=== PATIENT | female | born 1990 | race Caucasian/White ===

== ENCOUNTER → 2016-10-22 | Outpatient (CLI) | payer BC ==
[~2016-10-22] MED LIST: CAMBIA50 MG PO; LEXAPRO PO
--- NOTE | ~2016-10-22 | US5 ---
[facility] A Service [facility] RADIOLOGY TEXT RESULTS PATIENT: ROHITH TRONCOSO LOCATION: [facility] : 89 UNIT #: [id number] AGE: [address]: VASILE MONTOYA APRN SEX: F ORDER DR: [id number] [address] [address] [id number] O MR#: [id number] Acc #: [id number] NAME: ROHITH TRONCOSO : 1990 SEX: F STUDY DATE/TIME: 10/22/2016 9:18 UNIT: [facility] ROOM: STUDY DESCRIPTION: US Abdominal Complete Attending Physician: Vasile Montoya Aprn Referring Physician: Vasile Montoya Aprn Ordering Physician: Vasile Montoya Aprn Primary Care Physician: Vasile Montoya Aprn MEDICAL IMAGING REPORT This report is preliminary unless electronic signature is present. EXAM Right upper quadrant ultrasound. DATE OF EXAM 10/22/2016 INDICATIONS 26-year-old female with right upper quadrant pain, nausea, vomiting and diarrhea for a week. TECHNIQUE Sonographic imaging of the right upper quadrant was performed. COMPARISON No comparisons. FINDINGS The pancreas was not well visualized or assessed. The liver demonstrates long axis length of 13.8 cm. No focal liver mass, ascites or intrahepatic ductal dilatation. The gallbladder is sonographically within normal limits. No sonographic Kerr's sign was described by the technologist. Right kidney nonobstructed measuring about 10.7 cm long axis. Extrahepatic common bile duct suboptimally visualized, but measures about 2-3 mm maximum diameter. IMPRESSION Negative right upper quadrant ultrasound. Pancreas not visualized or assessed. Dictated by... Devan Boston M.D. [facility] A Service [facility] RADIOLOGY TEXT RESULTS PATIENT: ROHITH TRONCOSO LOCATION: [facility] : 89 UNIT #: [id number] AGE: [address]: VASILE MONTOYA APRN SEX: F ORDER DR: THIS IS AN ELECTRONICALLY VERIFIED REPORT Devan Boston M.D. at 10/22/2016 4:52 PM Chacha TD: 10/22/2016 15:56 JOB #: [id number] MEDICAL IMAGING REPORT
== END | disposition home or self-care (01) ==
LOC: SGUS 07:54
DX: R10.11 Right upper quadrant pain (principal)
CPT/HCPCS: 76700

== ENCOUNTER 2017-01-14 14:25 | Emergency (ER) | payer BC ==
[2017-01-14] MEDS ORDERED: LEXAPRO PO (14:37)
[2017-01-14] MEDS ORDERED: CAMBIA50 MG PO (14:37)
== END 2017-01-14 16:14 | disposition home or self-care (01) ==
LOC: SED 14:25
DX: G44.209 Tension-type headache, unspecified, not intractable (principal); F17.200 Nicotine dependence, unspecified, uncomplicated; Z88.0 Allergy status to penicillin; Z88.1 Allergy status to other antibiotic agents; Z79.899 Other long term (current) drug therapy
CPT/HCPCS: 96372; 99283; J1885

== ENCOUNTER → 2017-01-27 | Outpatient (CLI) | payer BC ==
--- NOTE | ~2017-01-27 | MR18 ---
[facility] A Service of [facility] RADIOLOGY TEXT RESULTS PATIENT: ROHITH TRONCOSO LOCATION: [facility] : 89 UNIT #: [id number] AGE: [address]: VASILE OLIVER APRN SEX: F ORDER DR: [id number] [place] [id number] O MR#: [id number] Acc #: [id number] NAME: ROHITH TRONCOSO : 1990 SEX: F STUDY DATE/TIME: 01/27/2017 11:41 UNIT: [facility] ROOM: STUDY DESCRIPTION: MR Brain Wo Contrast Attending Physician: Vasile Oliver Aprn Referring Physician: Vasile Oliver Aprn Ordering Physician: Vasile Oliver Aprn Primary Care Physician: Vasile Oliver Aprn MRI CENTER REPORT This report is preliminary unless electronic signature is present. EXAM Brain MRI without contrast, 01/27/2017 PROCEDURE Routine unenhanced brain MRI. COMPARISON None HISTORY 4 year history of migraine type headaches, now increasing in frequency, severity and duration over the past 6 months. FINDINGS The brain is structurally normal. Bone marrow signal is normal. There is no hydrocephalus or extraaxial fluid collection. There is no evidence of acute or chronic intracranial hemorrhage and brain parenchymal signal is normal. Normal flow voids are seen in cerebral vessels. Bone marrow signal is normal. There is a right maxillary sinus air fluid level in addition to mucosal thickening. The findings suggest acute right maxillary sinusitis. IMPRESSION 1. The brain itself is normal. 2. Right maxillary sinus mucosal thickening and right maxillary sinus air fluid level suggesting acute right maxillary sinusitis. Dictated by... [facility] A Service of [facility] RADIOLOGY TEXT RESULTS PATIENT: ROHITH TRONCOSO LOCATION: [facility] : 89 UNIT #: [id number] AGE: [address]: VASILE OLIVER APRN SEX: F ORDER DR: Coleman De Souza M.D. THIS IS AN ELECTRONICALLY VERIFIED REPORT Coleman De Souza M.D. at 01/28/2017 3:57 PM LINDY/jenny TD: 01/28/2017 13:20 JOB #: [id number] MRI CENTER REPORT Page 1 of 1
== END | disposition home or self-care (01) ==
LOC: SMRI 11:45
DX: G43.909 Migraine, unspecified, not intractable, without status migrainosus (principal); J34.89 Other specified disorders of nose and nasal sinuses
CPT/HCPCS: 70551